=== PATIENT | male | born 1990 | race Caucasian/White ===

== ENCOUNTER 2020-12-25 11:00 | Inpatient (IN) | payer OTHER ==
[~2020-12-25] VITALS: Ht 180.3 cm; Wt 76.4 kg
[~2020-12-25 11:00] MED LIST: NO HOME MEDS
[2020-12-25] MEDS ORDERED: morphine 4 MG/ML inj SYRINge IV ONE ×2 (12:10→14:25)
[2020-12-25] MEDS ORDERED: ondansetron/PF 4mg/2ml inj IV ONE (12:10)
[2020-12-25] MEDS ORDERED: ketorolac tromethamine 15mg/ml inj. IV ONE (14:15)
[2020-12-25 14:54] LABS: BASOPHILS % (AUTO) 0.2 % (0-1); EOSINOPHILS % (AUTO) 0.3 % (0-6); HEMATOCRIT 36.4 % (42.0-52.0); HEMOGLOBIN 12.7 g/dl (14.0-17.9); LYMPHOCYTES # (AUTO) 1.6 X10'3 (1.1-4.8); LYMPHOCYTES % (AUTO) 21.7 % (21-51); MEAN CORPUSCULAR HEMOGLOBIN 32.6 PG (27.0-31.0); MEAN CORPUSCULAR HGB CONC 34.9 g/dL (33.0-36.5); MEAN CORPUSCULAR VOLUME 93.2 FL (78-98); MEAN PLATELET VOLUME 7.1 FL (7.4-10.4); MONOCYTES # (AUTO) 0.7 X10'3 (0-0.9); MONOCYTES % (AUTO) 9.8 % (2-12); NEUTROPHILS # (AUTO) 5.1 X10'3 (1.8-7.7); PLATELET COUNT 156 X10'3 (140-440); RED CELL DISTRIBUTION WIDTH 12.6 % (11.5-14.5); WHITE BLOOD COUNT 7.5 X10'3 (4.5-11.0)
[2020-12-25 15:04] LABS: ALANINE AMINOTRANSFERASE 32 U/L (12-78); ALBUMIN 3.1 G/DL (3.4-5.0); ALBUMIN/GLOBULIN RATIO 0.9 (1.1-1.5); ALKALINE PHOSPHATASE 54 IU/L (46-116); ANION GAP 4 (8-16); ASPARTATE AMINO TRANSFERASE 32 U/L (10-37); BILIRUBIN,TOTAL 0.5 MG/DL (0.1-1.0); BLOOD UREA NITROGEN 20 MG/DL (7-18); BUN/CREATININE RATIO 21.1 (5.4-32.0); CALCIUM 8.4 MG/DL (8.5-10.1); CHLORIDE 108 MMOL/L (99-107); CREATININE 0.95 MG/DL (0.60-1.10); GLUCOSE 89 MG/DL (70-104); SODIUM 141 MMOL/L (135-145); TOTAL CARBON DIOXIDE 28.8 MMOL/L (24-32); TOTAL PROTEIN 6.6 G/DL (6.4-8.2); eGFR > 90 ML/MIN
[2020-12-25] MEDS ORDERED: iohexol 300mg/ml 100ml inj. ONE (15:34)
[2020-12-25] MEDS ORDERED: HYDROmorphone 1 mg/ml syringe IV ONE (17:00)
[2020-12-25] MEDS ORDERED: acetaminophen 325mg tablet PO PRN ×2 (19:40)
[2020-12-25] MEDS ORDERED: HYDROcodone/acetaminophen 5mg/325mg tablet PO PRN (19:40)
[2020-12-25] MEDS ORDERED: acetaminophen 650mg rectal suppository RC PRN (19:40)
[2020-12-25] MEDS ORDERED: HYDROcodone/acetaminophen 10/325mg tab PO PRN (19:40)
[2020-12-25] MEDS ORDERED: ondansetron 4mg rapidly disintigrating tab PO PRN (19:40)
[2020-12-25] MEDS ORDERED: magnesium hydroxide 30ml (MOM) UD suspension PO PRN (19:40)
[2020-12-25] MEDS ORDERED: ondansetron/PF 4mg/2ml inj IV PRN (19:40)
[2020-12-25] MEDS ORDERED: morphine 2 MG/ML inj. syringe IV PRN (19:40)
[2020-12-25] MEDS ORDERED: bisacodyl 10mg suppository rectal RC PRN (19:40)
[2020-12-25] MEDS ORDERED: mag hydrox/Alum hydrox/simeth 30ml oral suspension PO PRN (19:40)
[2020-12-25] MEDS ORDERED: diphenhydrAMINE 50 mg/ml inj IV PRN (19:40)
[2020-12-25] MEDS ORDERED: diphenhydrAMINE 25mg capsule PO PRN (19:40)
[2020-12-25] MEDS: normal saline 1000ml 1,000 ML IV SCH ×2 (19:57→20:45)
[2020-12-25] MEDS: docusate sod 100mg capsule PO SCH (20:00)
[2020-12-25 20:01] LABS: HEMOGLOBIN A1C 5.2 % (4.5-6.2)
[2020-12-25] MEDS ORDERED: OXYC-658 PO (20:05)
[2020-12-25] MEDS ORDERED: CYCL-1 PO (20:05)
[2020-12-25] MEDS ORDERED: LIDO700A47 TP (20:05)
[2020-12-25] MEDS ORDERED: GABA300C PO (20:05)
[2020-12-25 20:09] LABS: PHOSPHORUS 3.5 MG/DL (2.3-4.5)
[2020-12-25] MEDS: morphine 2 MG/ML inj. syringe IV PRN (20:09)
[2020-12-25] MEDS ORDERED: oxyCODONE IR 5mg (immed. release) tablet PO PRN (20:15)
[2020-12-25] MEDS: gabapentin 300mg capsule PO SCH (20:38)
[2020-12-25] MEDS: heparin, porcine 5000 units/ml vial SQ SCH (20:39)
[2020-12-25 20:48] LABS: PARTIAL THROMBOPLASTIN TIME 28 SECONDS (22-32)
[2020-12-25] MEDS ORDERED: temazepam 15mg capsule PO PRN (21:00)
[2020-12-25 22:25] LABS: CREATINE KINASE 219 U/L (39-308); LIPASE 76 U/L (73-393)
[2020-12-25 22:27] LABS: ETHANOL < 0.010 GM/DL (0.0-0.010)
[2020-12-25] MEDS: HYDROmorphone inj. 0.5 MG/0.5 ML DISP.SYRIN IV PRN (22:50)
[2020-12-26] MEDS: cyclobenzaprine 10mg tablet PO PRN ×2 (03:08→13:52)
[2020-12-26 03:19] LABS: BASOPHILS % (AUTO) 0.2 % (0-1); EOSINOPHILS # (AUTO) 0.1 X10'3 (0-0.9); EOSINOPHILS % (AUTO) 1.2 % (0-6); HEMATOCRIT 36.8 % (42.0-52.0); HEMOGLOBIN 12.8 g/dl (14.0-17.9); LYMPHOCYTES # (AUTO) 1.8 X10'3 (1.1-4.8); LYMPHOCYTES % (AUTO) 32.6 % (21-51); MEAN CORPUSCULAR HEMOGLOBIN 32.5 PG (27.0-31.0); MEAN CORPUSCULAR HGB CONC 34.8 g/dL (33.0-36.5); MEAN CORPUSCULAR VOLUME 93.3 FL (78-98); MONOCYTES # (AUTO) 0.7 X10'3 (0-0.9); MONOCYTES % (AUTO) 12.5 % (2-12); NEUTROPHILS # (AUTO) 2.9 X10'3 (1.8-7.7); NEUTROPHILS % (AUTO) 53.5 % (42-75); PLATELET COUNT 141 X10'3 (140-440); RED BLOOD COUNT 3.95 X10'6 (4.70-6.10); RED CELL DISTRIBUTION WIDTH 12.5 % (11.5-14.5); WHITE BLOOD COUNT 5.5 X10'3 (4.5-11.0)
[2020-12-26 03:35] LABS: ALANINE AMINOTRANSFERASE 45 U/L (12-78); ALBUMIN 2.9 G/DL (3.4-5.0); ALBUMIN/GLOBULIN RATIO 0.8 (1.1-1.5); ALKALINE PHOSPHATASE 55 IU/L (46-116); ANION GAP 5 (8-16); ASPARTATE AMINO TRANSFERASE 45 U/L (10-37); BILIRUBIN,TOTAL 0.3 MG/DL (0.1-1.0); BLOOD UREA NITROGEN 17 MG/DL (7-18); BUN/CREATININE RATIO 18.7 (5.4-32.0); CALCIUM 7.9 MG/DL (8.5-10.1); CHLORIDE 106 MMOL/L (99-107); CHOL/HDL RATIO 3.1 (0.00-4.99); CHOLESTEROL 119 MG/DL (0-200); CREATININE 0.91 MG/DL (0.60-1.10); GLUCOSE 104 MG/DL (70-104); HDL CHOLESTEROL 39 MG/DL (35-60); LDL CHOLESTEROL 67 MG/DL (50-100); POTASSIUM 4.1 MMOL/L (3.5-5.1); SODIUM 140 MMOL/L (135-145); TOTAL CARBON DIOXIDE 28.8 MMOL/L (24-32); TOTAL PROTEIN 6.4 G/DL (6.4-8.2); TRIGLYCERIDES 78 MG/DL (20-135); eGFR > 90 ML/MIN
[2020-12-26] MEDS: morphine 2 MG/ML inj. syringe IV PRN ×3 (07:08→19:50)
[2020-12-26] MEDS: nicotine 21mg patch - 24 hr TD SCH (08:00)
[2020-12-26] MEDS: pantoprazole 40mg Tablet.DR PO SCH (08:01)
[2020-12-26] MEDS: gabapentin 300mg capsule PO SCH ×3 (08:01→20:39)
[2020-12-26] MEDS: docusate sod 100mg capsule PO SCH ×2 (08:01→19:51)
[2020-12-26] MEDS: heparin, porcine 5000 units/ml vial SQ SCH ×3 (08:01→20:39)
[2020-12-26] MEDS: LIDOcaine 5% patch TP SCH (08:02)
[2020-12-26] MEDS: HYDROmorphone inj. 0.5 MG/0.5 ML DISP.SYRIN IV PRN ×2 (10:19→15:03)
[2020-12-26] MEDS: normal saline 1000ml 1,000 ML IV SCH (15:40)
--- NOTE | 2020-12-26 16:18 | NUR ---
Patient with ortho boot to left foot, using walker to stand. Mother at bedside, page sent to case management per mother request for update.
[2020-12-26 19:14] LABS: URINE AMPHETAMINE SCREEN NEGATIVE (Neg); URINE BARBITUATE SCREEN NEGATIVE (Neg); URINE BENZODIAZEPINES SCREEN NEGATIVE (Neg); URINE CANNABINOID SCREEN NEGATIVE (Neg); URINE COCAINE SCREEN NEGATIVE (Neg); URINE METHADONE SCREEN NEGATIVE (Neg); URINE OPIATE SCREEN POSITIVE (Neg); URINE PHENCYCLIDINE SCREEN NEGATIVE (Neg)
[2020-12-26 19:16] LABS: CLARITY,URINE CLEAR (Clear); COLOR,URINE YELLOW (Yellow); UA COLLECTION TYPE NON-SPECIFIED
[2020-12-26 19:17] LABS: GLUCOSE, URINE NEGATIVE (Neg); KETONES,URINE NEGATIVE (Neg); LEUKOCYTE ESTERASE ,URINE NEGATIVE (Neg); NITRITES, URINE NEGATIVE (Neg); OCCULT BLOOD,URINE NEGATIVE (Neg); PROTEIN,URINE NEGATIVE (Neg); UROBILINOGEN,URINE 0.2 E.U/dL (0.2-1.0)
--- NOTE | 2020-12-26 21:02 | NUR ---
Report received. Patient will be admitted to Room 3064C
--- NOTE | 2020-12-26 21:10 | NUR ---
Patient refused 2 RN skin check and refuses to wear gown. L
[2020-12-26 22:00] VITALS: BP 122/49
--- NOTE | 2020-12-26 23:30 | NUR ---
Patient is refuses heart monitor and IVF. Patient states that he feels trapped wearing the heart monitor. Patient states he is not here for that. He wants to go home in the AM. Patient educated about the use of the tele but states that he believes that he does not need it need. He is pretty healthy.
--- NOTE | 2020-12-26 23:54 | NUR ---
Dr. Cotto made aware of patient's refusal to have the telemonitor and IVF. Will continue to monitor
[2020-12-27] MEDS: normal saline 1000ml 1,000 ML IV SCH ×2 (01:40→11:40)
[2020-12-27 02:00] VITALS: BP 116/60
[2020-12-27 06:18] LABS: BASOPHILS % (AUTO) 0.3 % (0-1); EOSINOPHILS # (AUTO) 0.1 X10'3 (0-0.9); EOSINOPHILS % (AUTO) 1.4 % (0-6); HEMATOCRIT 34.6 % (42.0-52.0); HEMOGLOBIN 12.1 g/dl (14.0-17.9); LYMPHOCYTES # (AUTO) 1.5 X10'3 (1.1-4.8); LYMPHOCYTES % (AUTO) 35.6 % (21-51); MEAN CORPUSCULAR HEMOGLOBIN 32.5 PG (27.0-31.0); MEAN CORPUSCULAR HGB CONC 35.1 g/dL (33.0-36.5); MEAN CORPUSCULAR VOLUME 92.7 FL (78-98); MEAN PLATELET VOLUME 7.5 FL (7.4-10.4); MONOCYTES # (AUTO) 0.5 X10'3 (0-0.9); MONOCYTES % (AUTO) 11.5 % (2-12); NEUTROPHILS # (AUTO) 2.2 X10'3 (1.8-7.7); NEUTROPHILS % (AUTO) 51.2 % (42-75); PLATELET COUNT 166 X10'3 (140-440); RED BLOOD COUNT 3.73 X10'6 (4.70-6.10); RED CELL DISTRIBUTION WIDTH 12.7 % (11.5-14.5); WHITE BLOOD COUNT 4.3 X10'3 (4.5-11.0)
[2020-12-27 06:26] LABS: ALANINE AMINOTRANSFERASE 45 U/L (12-78); ALBUMIN/GLOBULIN RATIO 0.9 (1.1-1.5); ALKALINE PHOSPHATASE 54 IU/L (46-116); ANION GAP 5 (8-16); ASPARTATE AMINO TRANSFERASE 36 U/L (10-37); BILIRUBIN,TOTAL 0.3 MG/DL (0.1-1.0); BLOOD UREA NITROGEN 15 MG/DL (7-18); BUN/CREATININE RATIO 17.2 (5.4-32.0); CALCIUM 8.6 MG/DL (8.5-10.1); CHLORIDE 107 MMOL/L (99-107); CREATININE 0.87 MG/DL (0.60-1.10); GLUCOSE 101 MG/DL (70-104); POTASSIUM 4.1 MMOL/L (3.5-5.1); SODIUM 142 MMOL/L (135-145); TOTAL CARBON DIOXIDE 30.4 MMOL/L (24-32); TOTAL PROTEIN 6.4 G/DL (6.4-8.2); eGFR > 90 ML/MIN
[2020-12-27] MEDS: gabapentin 300mg capsule PO SCH ×2 (10:22→13:38)
[2020-12-27] MEDS: cyclobenzaprine 10mg tablet PO PRN (10:23)
[2020-12-27] MEDS ORDERED: NAPR-56 PO (10:24)
[2020-12-27] MEDS: LIDOcaine 5% patch TP SCH (10:25)
[2020-12-27] MEDS: nicotine 21mg patch - 24 hr TD SCH (10:25)
[2020-12-27] MEDS: docusate sod 100mg capsule PO SCH (10:26)
[2020-12-27] MEDS: heparin, porcine 5000 units/ml vial SQ SCH (10:26)
[2020-12-27] MEDS: pantoprazole 40mg Tablet.DR PO SCH (10:26)
--- NOTE | 2020-12-27 14:52 | NUR ---
pt has refused all vital signs
== END 2020-12-27 15:45 | disposition home health service (06) | DRG 552 ==
LOC: ER 11:00 → ED HOLD 19:45 → EDBEDREQ 20:26 → PCU 3S 12-26 21:05
PROVIDERS: ADMIT Family Medicine; ATTEND Family Medicine
PROC: BW251ZZ Computerized Tomography (CT Scan) of Chest, Abdomen and Pelvis using Low Osmolar Contrast (ICD-10-PCS; principal; 2020-12-25)
DX: S32.019A Unspecified fracture of first lumbar vertebra, initial encounter for closed fracture (principal); S32.029A Unspecified fracture of second lumbar vertebra, initial encounter for closed fracture; S32.039A Unspecified fracture of third lumbar vertebra, initial encounter for closed fracture; S32.049A Unspecified fracture of fourth lumbar vertebra, initial encounter for closed fracture; S82.402A Unspecified fracture of shaft of left fibula, initial encounter for closed fracture; R26.2 Difficulty in walking, not elsewhere classified; F17.210 Nicotine dependence, cigarettes, uncomplicated; R26.9 Unspecified abnormalities of gait and mobility; R00.1 Bradycardia, unspecified; E86.1 Hypovolemia; W22.8XXA Striking against or struck by other objects, initial encounter; Z88.8 Allergy status to other drugs, medicaments and biological substances; Z79.899 Other long term (current) drug therapy; Y93.89 Activity, other specified; Y92.89 Other specified places as the place of occurrence of the external cause; Y99.8 Other external cause status
CPT/HCPCS: 36415; 71045; 71260; 73552; 73564; 74177; 80053; 80061; 80305; 80320; 81003; 82550; 83036; 83690; 83735; 83880; 84100; 84443; 84484; 85025; 85610; 85730; 87081; 93005; 97110; 97161; 97530; 97760; 99285; G0378; J1170; J1644; J1885; J2270; J2405; J7030; Q9967